=== PATIENT | female | born 1970 | race Caucasian/White ===

== ENCOUNTER 2023-04-18 15:05 | Emergency (ER) | payer OTHER ==
[2023-04-18] MEDS ORDERED: AMOXIC-POT CLAV 875-125MG 1 EACH TAB PO STA (16:00)
[2023-04-18] MEDS ORDERED: ONDANSETRON ODT 4 MG TAB PO STA (16:00)
--- NOTE | 2023-04-18 16:25 | ED ---
General Adult HPI - General Chief complaint: Psychiatric Symptoms Stated complaint: dental infection-mental health Time Seen by Provider: 04/18/23 15:50 Source: patient, police, RN notes reviewed, old records reviewed Mode of arrival: ambulatory Limitations: no limitations - History of Present Illness Initial comments: Patient is a 52-year-old female who presents emergency department for psychiatric evaluation. States she has a history of anxiety and depression. Has been worse lately. Did see [facility] yesterday but states that the medication she was given is not helping. Has been having suicidal ideations but no plans or attempts. Denies any homicidal ideations, attempts, plans. Denies any visual or auditory hallucinations. Denies any other acute complaints at this time other than somewhat chronic dental pain for which she is already on penicillin for. States she has been having less of an appetite as well as 1 episode of emesis over the last few days. Believes it is directly related to her depression anxiety as this has happened previously. Does endorse drinking some alcohol today but no history of withdrawals. Presents for further evaluation at this time. - Related Data Allergies Allergy/AdvReac Type Severity Reaction Status Date / Time trimethoprim [From Bactrim] Allergy Unknown Verified 04/18/23 15:14 Review of Systems ROS Statement: Those systems with pertinent positive or pertinent negative responses have been documented in the HPI. Review of Systems: CONST: Denies fever EYES: Denies blurry vision ENT: Denies nasal congestion C/V: Denies Chest pain RESP: Denies shortness of breath GI: Denies abdominal pain : Denies dysuria SKIN: Denies rash. MSK: Denies joint pain. NEURO: Denies headache PSYCH: Denies homicidal ideations/plans/attempts. Denies visual or auditory hallucinations. Endorses suicidal ideation. Denies plan or attempt. ROS Other: All systems not noted in ROS Statement are negative. Past Medical History Past Medical History: Hypertension Additional Past Medical History / Comment(s): dental infection History of Any Multi-Drug Resistant Organisms: None Reported Past Surgical History: Orthopedic Surgery Past Psychological History: Depression Smoking Status: Current every day smoker, Vaper Past Alcohol Use History: Abuse, Daily Past Drug Use History: None Reported General Exam - General Exam Comments Initial Comments: General: Appears in no acute distress. HEAD: Normal with no signs of head trauma. EYES: PERRLA, EOMI, conjunctiva normal, no discharge. ENT: Appears to have chronic dental caries without any obvious abscess or infection. She e is empirically on antibiotics at this time. RESPIRATORY: Clear breath sounds bilaterally. No wheezes, rales, or rhonchi. C/V: Regular rate and rhythm. S1 and S2 auscultated, no edema, peripheral pulses 2+ and intact throughout ABD: Abd is soft, nontender, nondistended EXT: Normal range of motion, no obvious deformity SKIN: No rashes or lesions observed on exposed skin. NEURO: Alert and oriented x 4. Limitations: no limitations Course Vital Signs 04/18/23 04/18/23 04/18/23 15:09 15:54 19:24 Temperature 98.5 F 98.2 F Pulse Rate 85 68 98 Respiratory 16 20 19 Rate Blood Pressure 169/109 160/100 162/78 O2 Sat by Pulse 95 98 95 Oximetry Medical Decision Making - Medical Decision Making Was pt. sent in by a medical professional or institution (, PA, [employer]ER, urgent care, hospital, or fdc...) When possible be specific @ -No Did you speak to anyone other than the patient for history (EMS, parent, family, police, friend...)? What history was obtained from this source @ -No Did you review nursing and triage notes (agree or disagree)? Why? @ -I reviewed and agree with nursing and triage notes Were old charts reviewed (outside hosp., previous admission, EMS record, old EKG, old radiological studies, urgent care reports/EKG's, fdc records)? Report findings @ -Old charts reviewed Differential Diagnosis (chest pain, altered mental status, abdominal pain women, abdominal pain men, vaginal bleeding, weakness, fever, dyspnea, syncope, headache, dizziness, GI bleed, back pain, seizure, CVA, palpatations, mental health, musculoskeletal)? @ -Differential Mental Health Depression, anxiety, bipolar, psychosis, schizophrenia, borderline personality, situational depression, adjustment disorder, behavioral disorder, brain tumor, malingering, substance abuse, encephalopathy, medication reaction, dementia, hypothyroidism, degenerative neurologic disorder, lupus.... This is not meant to be all-inclusive list EKG interpreted by me (3pts min.). @ -None done X-rays interpreted by me (1pt min.). @ -None done CT interpreted by me (1pt min.). @ -None done U/S interpreted by me (1pt. min.). @ -None done What testing was considered but not performed or refused? (CT, X-rays, U/S, labs)? Why? @ -None What meds were considered but not given or refused? Why? @ -None Did you discuss the management of the patient with other professionals (professionals i.e. , PA, [employer] LEADER, lab, RT, psych nurse, director of social media marketing, nurse receptionist, teacher, commanding officer homicide squad, manager rn case)? Give summary @ -EPS notified of the consult. EPS cleared the patient for discharge. Patient will be given resources. Was smoking cessation discussed for >3mins.? @ -No Was critical care preformed (if so, how long)? @ -No Were there social determinants of health that impacted care today? How? (Homelessness, low income, unemployed, alcoholism, drug addiction, transportation, low edu. Level, literacy, decrease access to med. care, senior care, rehab)? @ -No Was there de-escalation of care discussed even if they declined (Discuss DNR or withdrawal of care, Hospice)? DNR status @ -No What co-morbidities impacted this encounter? (DM, HTN, Smoking, COPD, CAD, Cancer, CVA, ARF, Chemo, Hep., AIDS, mental health diagnosis, sleep apnea, morbid obesity)? @ -Depression, anxiety Was patient admitted / discharged? Hospital course, mention meds given and route, prescriptions, significant lab abnormalities, going to OR and other pertinent info. @ -Based on the patient's presentation and physical exam, presents primarily for worsening anxiety and depression with suicidal ideations. Has been ongoing worse for the last week. She was placed in a green gown. Suicide precautions ordered. Sitter ordered. Vital signs within acceptable limits. BAT is 0.067. UDS is pending. Patient will be empirically given a dose of Augmentin for her tooth infection as she cannot recall the name of the antibiotic she is on currently. She was also given a dose of ODT Zofran. She was in agreement this plan. No evidence of alcohol withdrawals at this time. At this time, patient is medically cleared for evaluation by psychiatry. Disposition is pending psychiatric evaluation. EPS evaluate the patient. Determined that she does not meet inpatient criteria. She is given resources for follow-up and will be discharged home at this time. I was in agreement this plan. I recommended she continue with the antibiotic she was already given for her to take. She is discharged home with a safety plan in good condition. Undiagnosed new problem with uncertain prognosis? @ -No Drug Therapy requiring intensive monitoring for toxicity (Heparin, Nitro, Insulin, Cardizem)? @ -No Were any procedures done? @ -No Diagnosis/symptom? @ -Tooth ache, encounter for psychiatric evaluation, depression Acute, or Chronic, or Acute on Chronic? @ -Acute Uncomplicated (without systemic symptoms) or Complicated (systemic symptoms)? @ -Complicated Side effects of treatment? @ -None Exacerbation, Progression, or Severe Exacerbation] @ -No Poses a threat to life or bodily function? @ -No - Lab Data Lab Results 04/18/23 Range/Units 16:00 Urine Opiates Screen Not Detected (NotDetected) Ur Oxycodone Screen Detected H (NotDetected) Urine Methadone Screen Not Detected (NotDetected) Ur Barbiturates Screen Not Detected (NotDetected) U Tricyclic Antidepress Not Detected (NotDetected) Ur Phencyclidine Scrn Not Detected (NotDetected) Ur Amphetamines Screen Not Detected (NotDetected) U Methamphetamines Scrn Not Detected (NotDetected) U Benzodiazepines Scrn Not Detected (NotDetected) Urine Cocaine Screen Not Detected (NotDetected) U Marijuana (THC) Screen Not Detected (NotDetected) Disposition Clinical Impression: Depression, Toothache, Encounter for psychiatric assessment Disposition: HOME SELF-CARE Condition: Good Additional Instructions: follow safety plan Is patient prescribed a controlled substance at d/c from ED?: No Referrals: None,Stated [Primary Care Provider] - 1-2 days Time of Disposition: 18:52
[2023-04-18 16:47] LABS: Amphetamine Screen,Urine Not Detected (NotDetected); Barbiturate Screen,Urine Not Detected (NotDetected); Benzodiazepines Screen,Urine Not Detected (NotDetected); Cocaine Screen,Urine Not Detected (NotDetected); Methadone Screen, Urine Not Detected (NotDetected); Opiate Screen,Urine Not Detected (NotDetected); Oxycodone Screen, Urine Detected (NotDetected); Phencyclidine Screen,Urine Not Detected (NotDetected); Tricyclic Antidepressant,Urine Not Detected (NotDetected); Urn Cannabinoid Scrn Not Detected (NotDetected)
[2023-04-18 19:29] VITALS: BP 162/78; PULSE 98; RESP 19; TEMP 98.2
== END 2023-04-18 19:40 | disposition home or self-care (01) ==
LOC: EC 15:05
DX: Z00.8 Encounter for other general examination (principal); K08.89 Other specified disorders of teeth and supporting structures; F32.A Depression, unspecified; I10 Essential (primary) hypertension; F17.290 Nicotine dependence, other tobacco product, uncomplicated; Z88.1 Allergy status to other antibiotic agents
CPT/HCPCS: 80306; 82075; 99285

== ENCOUNTER → 2023-06-30 | Outpatient (CLI) | payer OTHER ==
--- NOTE | 2023-06-30 17:15 | CA ---
Transthoracic Echo Report Name: Geovanna Cramer Age: 52 Gender: F : 1970 Exam Date: 06/30/2023 16:12 Exam Location: [place] [facility] Ht (in): 67 Wt (lb): 185 Ordering Physician: Raina De Leon MD Attending/Referring Phys: Mary Caldera [facility] Special Needs Tutor Tawanna Brewer RDCS Procedure CPT: Indications: R002 INTERMITTENT PALPITATIONS Cardiac Hx: Technical Quality: Fair Contrast 1: Total Dose (mL): Contrast 2: Total Dose (mL): MEASUREMENTS (Male / Female) Normal Values 2D ECHO LV Diastolic Diameter PLAX 3.5 cm 4.2 - 5.9 / 3.9 - 5.3 cm LV Systolic Diameter PLAX 2.6 cm IVS Diastolic Thickness 1.5 cm 0.6 - 1.0 / 0.6 - 0.9 cm LVPW Diastolic Thickness 1.7 cm 0.6 - 1.0 / 0.6 - 0.9 cm LV Relative Wall Thickness 0.9 RV Internal Dim ED PLAX 3.2 cm LA Volume 69.1 cm??? 18 - 58 / 22 - 52 cm??? LA Volume Index 34.3 cm???/m??? 16 - 28 cm???/m??? M-MODE Aortic Root Diameter MM 3.0 cm LA Systolic Diameter MM 4.8 cm LA Ao Ratio MM 1.6 AV Cusp Separation MM 2.3 cm DOPPLER AV Peak Velocity 168.2 cm/s AV Peak Gradient 11.3 mmHg AV Mean Velocity 110.8 cm/s AV Mean Gradient 5.5 mmHg AV Velocity Time Integral 29.1 cm LVOT Peak Velocity 152.5 cm/s LVOT Peak Gradient 9.3 mmHg LVOT Velocity Time Integral 29.0 cm MV Area PHT 3.3 cm??? Mitral E Point Velocity 66.3 cm/s Mitral A Point Velocity 75.5 cm/s Mitral E to A Ratio 0.9 MV Deceleration Time 230.6 ms MV E' Velocity 7.9 cm/s Mitral E to MV E' Ratio 8.4 TR Peak Velocity 252.0 cm/s TR Peak Gradient 25.4 mmHg Right Ventricular Systolic Press 29.2 mmHg FINDINGS Left Ventricle Moderately increased left ventricular wall thickness. Left ventricular cavity size normal. Normal left ventricular systolic function with no obvious regional wall motion abnormalities. Left ventricular ejection fraction is estimated at 55-60 %. Grade 1 diastolic dysfunction. Right Ventricle Normal right ventricular size and function. Right ventricular systolic pressure within normal limits. Right Atrium Normal right atrial size. Left Atrium Moderately increased left atrial volume. Mildly increased left atrial area. Mitral Valve Structurally normal mitral valve. Mild mitral regurgitation. Aortic Valve Trileaflet aortic valve. No aortic valve stenosis or regurgitation. Tricuspid Valve Structurally normal tricuspid valve. Mild tricuspid regurgitation. Pulmonic Valve Structurally normal pulmonic valve. Pericardium No pericardial effusion. Aorta Normal size aortic root and proximal ascending aorta. CONCLUSIONS Normal LV function Mild mitral regurgitation Previewed by: Dr. Dimitri Doyle MD (Electronically Signed) Final Date: 30 June 2023 17:14
--- NOTE | 2023-06-30 22:40 | US ---
EXAMINATION TYPE: US arterial LE single level DATE OF EXAM: 06/30/2023 4:01 PM CLINICAL INDICATION: Female, 52 years old with history of R20.0 BILATERAL LEG NUMBNESS; Patient state s numb feet/legs History of: Smoker: Current Smoker Hypertension: Yes Diabetic: No Hyperlipidemia: No TIA/CVA: No Previous Vascular Surgery: No CAD: No WA: No Vascular Ulcers: No Claudication: No Gangrene: No Doppler Waveforms: Right: Left: Right Brachial Pressure: 152 Left Brachial Pressure: 160 Ankle-Brachial Indices: Right: 1.3 Left: 1.3 (Vessel hardening > 1.4; Normal 0.9 - 1.4, Moderate 0.7 - 0.9, Severe 0.5-0.7) Normal IMPRESSION: 1. No suspicious narrowing
== END | disposition home or self-care (01) ==
LOC: RADUSWWP 15:08
PROVIDERS: ATTEND Family Medicine
DX: I34.0 Nonrheumatic mitral (valve) insufficiency (principal); R00.2 Palpitations; R20.0 Anesthesia of skin; I10 Essential (primary) hypertension
CPT/HCPCS: 93306; 93922

== ENCOUNTER → 2023-08-26 | Outpatient (CLI) | payer OTHER ==
--- NOTE | 2023-08-26 12:35 | MR ---
EXAMINATION TYPE: MR lumbar spine wo/w con DATE OF EXAM: 08/26/2023 COMPARISON: NONE HISTORY: Low back pain TECHNIQUE: T1 and T2 axial and sagittal images of the lumbar spine are submitted. Postcontrast T1 s agittal and axial images. Contrast: 8ml Gadavist FINDINGS: There is no abnormal signal seen within the visualized spinal cord or paraspinal soft tissu es. Adrenal thickening most typical of hyperplasia or benign adenoma. At L1-2 there is there is broad-based central disc small protrusion with mild effacement of the theca l sac. No canal stenosis. There is facet arthropathy. Neural foramina patent. At L2-3 there is facet arthropathy but no canal stenosis or disc herniation. No foraminal encroachmen t. At L3-4 there is severe degenerative disc disease with discogenic marrow changes and grade 1 anteroli sthesis. There is severe facet arthropathy. Suspect bilateral spondylolysis although motion artifact limits assessment. Severe bilateral foraminal encroachment At L4-5 there is degenerative disc disease with advanced facet arthropathy, ligamentum flavum hypertr ophy. Mild left foraminal encroachment. Mild broad-based central disc bulging. Borderline to mild aubrey tral stenosis with diminutive spinal canal. At L5-S1 there is facet arthropathy but no disc herniation, canal stenosis, or foraminal encroachment . IMPRESSION: 1. Severe degenerative disc disease L4-L5 with grade 1 anterolisthesis and severe bilateral foraminal encroachment. 2. Broad-based central disc protrusion at L1-L2 with mild effacement of thecal sac. No foraminal encr oachment. 3. Mild broad-based disc bulging L4-L5 with borderline to mild central stenosis and mild left foramin al encroachment.
--- NOTE | 2023-08-31 15:42 | MM ---
Reason for Exam: Screening (asymptomatic). Baseline mammogram. Patient History: Menarche at age 12. Patient has no children. Postmenopausal. Patient used Hormonal Contraceptives for 10 years. Risk Values: [place] 5 year model risk: 1.2%. NCI Lifetime model risk: 9.4%. Prior Study Comparison: Patient's first Mammogram. Tissue Density: The breasts are heterogeneously dense, which may obscure small masses. Findings: The pattern is symmetrical. There are multiple grouped and regional calcifications present bilaterally. Additional evaluation 9 dictation views is recommended. The pattern is symmetrical. There are multiple grouped and regional calcifications present bilaterally. Additional evaluation with magnification views is recommended. Overall Assessment: Incomplete: need additional imaging evaluation, BI-RAD 0 Management: Diagnostic Mammogram of both breasts. A negative mammogram report should not preclude additional follow up of suspicious palpable abnormalities. Patient should continue monthly self breast exam. A clinical breast exam by your physician is recommended on an annual basis and results should be correlated with mammographic findings. Note on Haylee scores and lifetime risk: 1. A Haylee score greater than 3% is considered moderate risk. If this is the case, consider specialist referral to assess eligibility for a risk reducing agent. 2. If overall lifetime risk for the development of breast cancer is 20% or higher, the patient may qualify for future screening with alternating mammogram and breast MRI. Electronically signed and approved by: Damaso Sol D.O. Radiologis
== END | disposition home or self-care (01) ==
LOC: RADMAMWWP 10:25
PROVIDERS: ATTEND Family Medicine
DX: Z12.31 Encounter for screening mammogram for malignant neoplasm of breast (principal); M43.16 Spondylolisthesis, lumbar region; M51.26 Other intervertebral disc displacement, lumbar region; M51.36 Other intervertebral disc degeneration, lumbar region; M48.061 Spinal stenosis, lumbar region without neurogenic claudication; M99.73 Connective tissue and disc stenosis of intervertebral foramina of lumbar region; R20.0 Anesthesia of skin; Z78.0 Asymptomatic menopausal state
CPT/HCPCS: 77067; 72158; A9585